=== PATIENT | male | born 1995 | race Caucasian/White ===

== ENCOUNTER → 2019-10-09 | Outpatient (CLI) | payer BC ==
--- NOTE | 2019-10-09 17:00 | RAD ---
Nonvascular left extremity ultrasound INDICATION: Intermittent nontender left groin lump. The report of the time of presentation for imaging that he is unable to palpate the lump at this visit. TECHNIQUE: Grayscale, color and spectral Doppler imaging of the left groin was performed in the area of patient reported concern. FINDINGS: The area of lump reveals no mass, fluid collection or enlarged lymph node. The left testicle imaged incidentally is normal in size and demonstrates normal blood flow on color and spectral Doppler imaging. IMPRESSION: Negative left groin ultrasound. No masses identified in the patient's reported area of intermittently palpable concern, which is currently not present on self exam at this visit. Recommend clinical follow-up. Electronically signed by: Horace Corbin MD (10/09/2019 4:57 PM) [id number]
== END | disposition home or self-care (01) ==
LOC: US 07:52
PROVIDERS: ATTEND Surgery
DX: R19.09 Other intra-abdominal and pelvic swelling, mass and lump (principal)
CPT/HCPCS: 76881